=== PATIENT | male | born 1990 | race Hispanic/Latino ===

== ENCOUNTER 2021-07-19 08:04 | Emergency (ER) | payer SELFPAY ==
[~2021-07-19] VITALS: Ht 177.8 cm; Wt 131.5 kg
== END 2021-07-19 09:13 | disposition home or self-care (01) ==
LOC: ER 08:06
DX: R50.9 Fever, unspecified (principal); B34.9 Viral infection, unspecified; R53.81 Other malaise; F17.210 Nicotine dependence, cigarettes, uncomplicated
CPT/HCPCS: 99282; 99283